=== PATIENT | male | born 1940 | race Caucasian/White ===

== ENCOUNTER 2018-04-28 11:15 | Inpatient (IN) | payer MEDICARE, OTHER ==
[~2018-04-28] VITALS: Ht 170.2 cm; Wt 81.3 kg
[~2018-04-28 11:15] MED LIST: ADULT LOW DOSE81 MG; AMOXICILLIN 50500 MG PO; ASPIR 8181 MG PO; ASPIRIN81 M2 PO; AUGMENTIN 875875 MG PO; B-122500 MCG SL; BETAPACE PO; CALCIUM 500 +1 EAC5 PO; CALCIUM 600 +1 EAC1 PO; CENTRUM SILVER1 EAC2 PO; CINNAMON500 MG PO; DESYREL100 MG; ELIQUIS5 MG PO; FISH OIL 1,001000 M2 PO; FLEXERIL PO; GLUCOSAMINE HC500 MG PO; HARD NAILS2500 MCG PO; HYDROCODONE-AP1 EAC6 PO; IRON325 PO; LIPITOR10 MG PO; LISINOPRIL PO; LOPRESSOR PO; LOPRESSOR50 PO; POTASSIUM GLUC500 GM MC; POTASSIUM GLUC500 MG PO; PRINIVIL20 MG PO; SORINE 80 MG TA80 M1 PO; TRAZODONE HCL100 MG PO; VIAGRA; ZOCOR; ZOCOR20 MG PO
[2018-04-28 11:22] VITALS: BP 143/116
[2018-04-28] MEDS ORDERED: CO Q-10100 MG PO (11:31)
[2018-04-28] MEDS ORDERED: LEXAPRO 10 MG T10 M1 PO (11:32)
[2018-04-28] MEDS ORDERED: XANAX 0.25 MG0.25 MG PO (11:32)
[2018-04-28] MEDS ORDERED: DONEPEZIL HCL 55 M1 PO (11:33)
[2018-04-28] MEDS ORDERED: BENADRYL25 MG PO (11:33)
[2018-04-28] MEDS ORDERED: XARELTO20 MG PO (11:33)
[2018-04-28 11:59] LABS: ABSOLUTE BASOPHILS 0.1 thou/uL (0.0-0.2); ABSOLUTE EOSINOPHILS 0.4 thou/uL (0.0-0.7); ABSOLUTE LYMPHOCYTES 1.6 thou/uL (0.8-5.3); ABSOLUTE MONOCYTES 0.9 thou/uL (0.0-1.2); BASOPHILS 1.3 %; EOSINOPHILS 4.7 %; HEMATOCRIT 34.6 % (42.0-52.0); HEMOGLOBIN 11.5 gm/dL (14.0-18.0); LYMPHOCYTES 19.7 %; MCH 29.4 pg (26.0-34.0); MCHC 33.1 g/dL (28.0-37.0); MCV 88.8 fL (80.0-100.0); MPV 8.3 fl. (7.2-11.1); NUCLEATED RBCS 0 /100WBC; PLATELET COUNT* 245 thou/uL (150-400); POLYS 63.3 %; RDW-CV 13.9 % (10.5-14.5); WBC 7.9 thou/uL (4.0-11.0)
[2018-04-28 12:11] LABS: APTT 33.9 Seconds (25.0-31.3); INR 1.4; PROTIME 13.5 Seconds (9.20-11.50)
[2018-04-28 12:28] LABS: ALBUMIN 3.4 g/dL (3.4-5.0); ALKALINE PHOSPHATASE 83 U/L (46-116); ANION GAP 5 mmol/L (7-16); CALCIUM 8.4 mg/dL (8.5-10.1); CHLORIDE 105 mmol/L (98-107); CK-MB MASS 1.6 ng/mL (<0.5-3.6); CO2 29 mmol/L (21-32); CREATININE 1.1 mg/dL (0.6-1.3); GLUCOSE 88 mg/dL (70-99); LIPASE 147 U/L (73-393); MAGNESIUM 2.1 mg/dL (1.8-2.4); NT-PRO BRAIN NAT PEPTIDE 347 pg/mL (<300); POTASSIUM 4.2 mmol/L (3.5-5.1); SGOT 35 U/L (15-37); SGPT 42 U/L (30-65); SODIUM 139 mmol/L (136-145); TOTAL BILIRUBIN 0.5 mg/dL (<0.1-1.0); TOTAL PROTEIN 6.3 g/dL (6.4-8.2); TROPONIN-I LEVEL <0.06 ng/mL (<0.06)
[2018-04-28 12:44] LABS: BUN 20 mg/dL (7-18)
[2018-04-28 14:54] VITALS: BP 144/84
[2018-04-28 15:10] VITALS: BP 129/55
[2018-04-28 15:15] VITALS: BP 144/66
[2018-04-28 20:00] VITALS: BP 156/70
[2018-04-29] VITALS: BP 109/59
[2018-04-29 04:00] VITALS: BP 116/75
[2018-04-29 08:35] VITALS: BP 123/77
[2018-04-29 12:00] VITALS: BP 120/87
--- NOTE | 2018-04-29 12:30 | EKG ---
[place] [address] ELECTROCARDIOGRAM REPORT Name: ANTOINE MARTINEZ Room: [address] ADM IN M.R.#: [id number] Admission: 04/28/18 Attend Phys: Sage Earl, Discharge: Date of : 38 Report #: [id number] THIS REPORT FOR: //name// [facility] ED Test Date: 2018-04-28 Test Time: 11:24:59 Pat Name: ANTOINE MARTINEZ Department: Room: [address] Gender: M Cost Manager: Makayla SANTANA : 1940 Requested By: Devon Dowd Order Number: [id number] Reading MD: Adán Holland Measurements Intervals [place] Rate: 54 P: 29 AR: 178 QRS: 11 QRSD: 90 T: 21 QT: 487 QTc: 462 Interpretive Statements Sinus rhythm Borderline low voltage, extremity leads Baseline wander in lead(s) V4 Compared to ECG 08/26/2016 13:30:34 Atrial fibrillation no longer present Electronically Signed On 04-29-2018 12:30:28 CDT by Adán Holland [email or web address] <ELECTRONICALLY SIGNED> By: Adán Holland MD, FACC 04/29/18 1230 1124 1124 Adán Holland MD, FAC /EPI
--- NOTE | 2018-04-29 12:31 | EKG ---
[place] [address] ELECTROCARDIOGRAM REPORT Name: ANTOINE MARTINEZ Room: [address] IN .R.#: [id number] Admission: 04/28/18 Attend Phys: Sage Earl, Discharge: Date of : 38 Report #: [id number] THIS REPORT FOR: //name// [facility] Test Date: 2018-04-28 Test Time: 16:42:16 Pat Name: ANTOINE MARTINEZ Department: Room: [facility] Gender: M Speech Correction Assistant: DMITRI PHAN : 1940 Requested By: Devon Dowd Order Number: [id number] MD: Adán Holland Measurements Intervals [place] Rate: 58 P: 58 [place]: 180 QRS: 21 QRSD: 95 T: 28 QT: 498 QTc: 490 Interpretive Statements Sinus rhythm Borderline low voltage, extremity leads Borderline prolonged QT interval Compared to ECG 08/26/2016 13:30:34 Atrial fibrillation no longer present Electronically Signed On 04-29-2018 12:30:55 CDT by Adán Holland [email or web address] <ELECTRONICALLY SIGNED> By: Adán Holland MD, FAC 04/29/18 1230 1642 1642 Adán Holland MD, [facility] /EPI
--- NOTE | 2018-04-29 12:32 | EKG ---
[place] [address] ELECTROCARDIOGRAM REPORT Name: ANTOINE MARTINEZ Room: [address] ADM IN M.R.#: [id number] Admission: 04/28/18 Attend Phys: Sage Earl, Discharge: Date of : 38 Report #: [id number] THIS REPORT FOR: //name// [facility] Test Date: 2018-04-29 Test Time: 07:28:59 Pat Name: ANTOINE MARTINEZ Department: Room: [address] Gender: M Material Stress Tester: EKTA BETANCOURT : 1940 Requested By: Sage Earl Order Number: [id number] Reading MD: Adán Holland Measurements Intervals [place] Rate: 74 P: [place]: QRS: -1 QRSD: 87 T: 33 QT: 407 QTc: 452 Interpretive Statements afib Ventricular premature complex Low voltage, extremity leads Baseline wander in lead(s) V2,V3 Compared to ECG 08/26/2016 13:30:34 Ventricular premature complex(es) now present Atrial fibrillation no longer present Electronically Signed On 04-29-2018 12:32:00 CDT by Adán Holland [email or web address] <ELECTRONICALLY SIGNED> By: Adán Holland MD, FACC 04/29/18 1232 0728 0728 Adán Holland MD, FAC /EPI
--- NOTE | 2018-04-29 12:32 | EKG ---
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 BETANCOURT : 1940 Requested By: Sage Earl Order Number: [id number] Reading MD: Adán Holland Measurements Intervals [place] Rate: 86 P: [place]: QRS: 4 QRSD: 84 T: 25 QT: 415 QTc: 497 Interpretive Statements Atrial fibrillation Low voltage, extremity leads Borderline prolonged QT interval Compared to ECG 08/26/2016 13:30:34 No significant changes Electronically Signed On 04-29-2018 12:32:05 CDT by Adán Holland [email or web address] <ELECTRONICALLY SIGNED> By: Adán Holland MD, [facility] 04/29/18 1232 0731 0731 Adán Holland MD, [facility] /EPI
[2018-04-29 15:58] VITALS: BP 128/77
[2018-04-29 20:00] VITALS: BP 138/79
[2018-04-30] VITALS: BP 116/63
[2018-04-30 04:00] VITALS: BP 109/62
[2018-04-30 08:00] VITALS: BP 114/77
[2018-04-30 11:35] VITALS: BP 114/71
[2018-04-30 15:43] VITALS: BP 139/92
[2018-04-30 16:13] VITALS: BP 139/92
--- NOTE | 2018-04-30 16:43 | CARDNUC ---
[place] [address] CARDIAC NUCLEAR IMAGING REPORT Name: ANTOINE MARTINEZ Room: [address] IN [facility]#: [id number] Admission: 04/28/18 Attend Phys: Sage Grider Discharge: Date of : 38 Date of Service: 04/30/18 1643 Report #: [id number] THIS REPORT FOR: //name// APPROVED REPORT Study performed: 04/29/2018 12:01:00 Indication: Chest pain, Atrial Fibrillation Patient Location: In-Patient Room #: 221 Stress Tech: Donita Talbot Stress Nurse: Verónica Palumbo RN Ht: 5 ft 7 in Wt: 179 lbs BSA: 1.93 m2 HR: 84 bpm BP: 115/80 mmHg BMI: 28.03 Rhythm: Atrial Fibrillation Medical History Medical History: HTN, Atrial Fibrillation Medications: Sotalol Allergies: Contrast Dye Cardiac Risk Factors: Age, HTN Exercise History: Sedentary Physical Disabilities: Knees Meds Held (24 hrs): Sotalol Resting Data Rest SPECT myocardial perfusion imaging was performed in supine position 45 minutes following the intravenous injection of 11.8 mCi of Tc-99m Sestamibi. Time of rest injection: 1145 Date: 04/30/2018 The images were gated to evaluate regional wall motion and calculate left ventricular ejection fraction. Administration Route: IV Administration Site: Right AC Pharmacologic Stress Pharmacologic stress test was performed by injecting Regadenoson 0.4 mg IV push over 10-15 seconds immediately followed by the intravenous injection of 35.2 mCi of Tc-99m Sestamibi. Time of stress injection: 1315 Date: 04/30/2018 Administration Route: IV Administration Site: Right AC Gated Stress SPECT was performed 45 [place] [address] CARDIAC NUCLEAR IMAGING REPORT Name: ANTOINE MARTINEZ Room: [address]#: [id number] Admission: 04/28/18 Attend Phys: Sage Grider Discharge: Date of : 38 Date of Service: 04/30/18 1643 Report #: [id number] injection. The images were gated to evaluate regional wall motion and calculate left ventricular ejection fraction. Prone imaging was performed. Stress Test Details Stress Test: Pharmacologic stress testing performed using 0.4 mg of regadenoson per 5 mL given IV over 10 seconds. Reason for pharmacologic stress test: physical limitation. HR Max Heart Rate (APMHR): 142 bpm Resting HR: 84 bpm Target HR (85% APMHR): 120 bpm Max HR Achieved: 111 bpm % of APMHR: 78 Recovery HR: 96 bpm HR response to stress: Normal HR response to stress BP Resting BP: 115/80 mmHg Recovery BP: 101/76 mmHg ECG Resting ECG: af Stress ECG: af ST Change: none Recovery ECG: af Clinical Reason for Termination: Dyspnea, Completed protocol Stress Symptoms: None Stress ECG Conclusion afib noted, no ecg changes Study Quality Study: Good Artifact: No artifact Study Data At rest, the left ventricular ejection fraction was 60%.. Post stress, the left ventricular ejection was 76%.. SSS: 0 SRS: 0 SDS: 0 TID = 90.00. [place] [address] CARDIAC NUCLEAR IMAGING REPORT Name: ANTOINE MARTINEZ Room: [address] IN [facility]#: [id number] Admission: 04/28/18 Attend Phys: Sage Grider Discharge: Date of : 38 Date of Service: 04/30/181642 Report #: [id number] Perfusion Normal perfusion on both the stress and rest images. Images were reviewed using [employer]. Wall Motion normal Nuclear Conclusion ECG Findings: negative for ischemia Clinical Findings: negative for ischemia Nuclear Findings: negative for ischemia Exercise Capacity: not assessed Negative perfusion nuclear stress test for ischemia <Conclusion> afib noted, no ecg changes <ELECTRONICALLY SIGNED> By: Adán Holland MD, [facility] 04/30/181642 42 1643 Adán Holland MD, FACC /INF
--- NOTE | 2018-04-30 18:09 | 2DMMODE ---
[place] [address] 2 D/M-MODE ECHOCARDIOGRAM Name: ANTOINE MARTINEZ Room: [address]#: [id number] Admission: 04/28/18 Attend Phys: Sage Grider Discharge: 04/30/18 Date of : 38 Date of Service: 04/30/18 1809 Report #: [id number] THIS REPORT FOR: //name// APPROVED REPORT Study performed: 04/30/2018 14:45:11 EXAM: Comprehensive 2D, Doppler, and color-flow Echocardiogram Patient Location: In-Patient Room #: [facility] Status: routine BSA: 1.93 HR: 109 bpm BP: 114/77 mmHg Rhythm: Atrial Fibrillation Other Information Study Quality: Good Indications Atrial Fibrillation Chest Pain 2D Dimensions LVEF(%): 71.89 (>50%) IVSd: 14.73 (7-11mm) LVOT Diam: 18.23 (18-24mm) LVDd: 38.54 mm PWd: 11.07 (7-11mm) Ascending Ao: 37.11 (22-36mm) LVDs: 22.94 (25-40mm) Aortic Root: 35.77 mm White's LVEF: 71.89 % Volumes Left Atrial Volume (Systole) LA ESV Index: 48.70 mL/m2 Aortic Valve AoV Peak Jerry.: 1.24 m/s AO Peak Gr.: 6.16 mmHg LVOT Max P.65 mmHg AO Mean Gr.: 3.53 mmHg LVOT Mean P.93 mmHg LVOT Max V: 0.96 m/s AO V2 VTI: 20.74 cm LVOT Mean V: 0.64 m/s ELIZABETH (VTI): 2.41 cm2 LVOT V1 VTI: 19.18 [place] [address] 2 D/M-MODE ECHOCARDIOGRAM Name: ANTOINE MARTINEZ Room: [address]#: [id number] Admission: 04/28/18 Attend Phys: Sage Grider Discharge: 04/30/18 Date of : 38 Date of Service: 04/30/18 1809 Report #: [id number] MV Decel. Time: 201.39 ms MV PHT: 58.40 ms MVA (PHT): 3.77 cm2 TDI Medial E' Jerry.: 0.09 m/s Lateral E' Jerry.: 0.13 m/s Pulmonary Valve PV Peak Jerry.: 0.84 m/s PV Peak Gr.: 2.79 mmHg Tricuspid Valve RAP Estimate: 5.00 mmHg TR Peak Gr.: 34.04 mmHg RVSP: 39.00 mmHg PA Pressure: 39.00 mmHg Left Ventricle The left ventricle is normal size. There is normal LV segmental wall motion. Mild concentric left ventricular hypertrophy. Left ventricular systolic function is normal. The left ventricular ejection fraction is within the normal range. LVEF is 60-65%. This study is not technically sufficient to allow evaluation of the LV diastolic function due to atrial fibrillation. Right Ventricle The right ventricle is normal size. The right ventricular systolic function is normal. Atria Left atrium is moderately dilated. Right atrium is moderately dilated. Aortic Valve Mild aortic valve sclerosis. No aortic regurgitation is present. There is no aortic valvular stenosis. Mitral Valve The mitral valve is normal in structure. Trace mitral regurgitation. No evidence of mitral valve stenosis. Tricuspid Valve The tricuspid valve is normal in structure. Mild tricuspid regurgitation. Mild pulmonary hypertension. Pulmonic Valve The pulmonary valve is normal in structure. [place] [address] 2 D/M-MODE ECHOCARDIOGRAM Name: ANTOINE MARTINEZ Room: [address]#: [id number] Admission: 04/28/18 Attend Phys: Sage Grider Discharge: 04/30/18 Date of : 38 Date of Service: 04/30/18 1809 Report #: [id number] valvular regurgitation. Great Vessels The aortic root is normal in size. IVC is normal in size and collapses with >50% inspiration Pericardium There is no pericardial effusion. <Conclusion> The left ventricle is normal size. Mild concentric left ventricular hypertrophy. Left ventricular systolic function is normal. The left ventricular ejection fraction is within the normal range. LVEF is 60-65%. This study is not technically sufficient to allow evaluation of the LV diastolic function due to atrial fibrillation. The right ventricle is normal size. Left atrium is moderately dilated. Right atrium is moderately dilated. No aortic regurgitation is present. There is no aortic valvular stenosis. The mitral valve is normal in structure. The tricuspid valve is normal in structure. IVC is normal in size and collapses with >50% inspiration There is no pericardial effusion. There is normal LV segmental wall motion. <ELECTRONICALLY SIGNED> By: Alex Desai MD, FACC 04/30/181808 08 08 Alex Desai MD, FACC /INF
--- NOTE | 2018-05-02 12:55 | CON ---
[address] [address] CONSULTATION Name: ANTOINE MARTINEZ Room: [address]#: [id number] Admission: 04/28/18 Attend Phys: Sage Earl, Discharge: 04/30/18 Date of : 38 Report #: [id number] THIS REPORT FOR: //name// CC: Jasen Earl DATE OF SERVICE: 04/28/2018 INPATIENT CONSULTATION REASON FOR CONSULTATION: Atrial fibrillation, questions chest pain. HISTORY OF PRESENT ILLNESS: The patient is a 77-year-old male with history of paroxysmal atrial fibrillation, who presented with sharp bilateral chest pain which occurred when he was doing some heavy lifting this past and Monday. It is positional. It hurts with a deep breath. He presented with atrial fibrillation with controlled ventricular response, but initially was in sinus rhythm with a heart rate of 58. His QT was 498 milliseconds. He denies palpitations, syncope or presyncope. His atrial fibrillation dose for sotalol was 240 mg p.o. b.i.d., which was started by Dr. Sprague and has been on this dose for several years. He is also anticoagulated with Xarelto. PAST MEDICAL HISTORY: Significant for scoliosis, back surgery, anxiety, depression, bipolar mood disorder and atrial fibrillation, paroxysmal. HOME MEDICATIONS: Atorvastatin 10 mg, trazodone, CoQ10, escitalopram, Xarelto 20 mg daily, sotalol 240 mg p.o. b.i.d. and lisinopril 20 mg daily. ALLERGIES: CONTRAST DYE. SOCIAL HISTORY: No tobacco actively. REVIEW OF SYSTEMS: GASTROINTESTINAL: No fevers or chills. GENERAL: No fevers or chills. HEMATOLOGIC: No anemia or bleeding disorders. RENAL: No history of kidney failure. CARDIOVASCULAR: Positive chest pain. No palpitations. SKIN: No rashes. NEUROLOGIC: Denies headaches, blurry vision or seizures. He does have a speech impediment. SKIN: [place] [address] CONSULTATION Name: ANTOINE MARTINEZ Room: [address]#: [id number] Admission: 04/28/18 Attend Phys: Sage Earl, Discharge: 04/30/18 Date of : 38 Report #: [id number] PHYSICAL EXAMINATION: VITAL SIGNS: Blood pressure is 140/116. GENERAL: This is a pleasant elderly male who is alert and oriented, in no apparent distress. NECK: Supple. No jugular venous distention. CARDIOVASCULAR EXAMINATION: Irregular. I cannot hear a murmur or rub. LUNGS: Clear to auscultation bilaterally. EXTREMITIES: No peripheral edema. LABORATORY DATA: Sodium is 139, potassium 4.2, chloride 105, CO2 is 29, BUN is 20, creatinine is 1.1 and glucose is 88. AST is 35, ALT is 42. Troponin I is 0.06. NT-proBNP is 347. INR is 1.4, hemoglobin is 11.5. Chest x-ray shows no acute abnormality. IMPRESSION AND PLAN: 1. Chest pain. His symptoms seem pleuritic, but he does have some cardiovascular risk factors. I will arrange for a stress test. 2. Costochondritis. I will start him on naproxen 500 mg p.o. b.i.d. 3. Paroxysmal atrial fibrillation. He apparently has been on the sotalol dose of 240 b.i.d. for some time and his QTC interval is high range of normal and has normal renal function. So, I do not see any reason that he should discontinue it. He will continue with Xarelto full dose as he has normal GFR. 4. Hypertension. Would continue with his ODILON inhibitor. <ELECTRONICALLY SIGNED> By: Adán Holland MD, FACC 05/02/18 1255 1157 0027Adán Holland MD, FACC /nt
== END 2018-04-30 16:30 | disposition home or self-care (01) | DRG 552 ==
LOC: M.ERS 11:15 → M.2W 12:31 → M.TBA-ER 12:31 → M.2W 15:05
PROVIDERS: Family Medicine; ADMIT Family Medicine
DX: S16.1XXA Strain of muscle, fascia and tendon at neck level, initial encounter (principal); F41.9 Anxiety disorder, unspecified; F31.9 Bipolar disorder, unspecified; I48.0 Paroxysmal atrial fibrillation; M94.0 Chondrocostal junction syndrome [Tietze]; I10 Essential (primary) hypertension; E78.5 Hyperlipidemia, unspecified; X58.XXXA Exposure to other specified factors, initial encounter; Y93.89 Activity, other specified; Y92.89 Other specified places as the place of occurrence of the external cause; Y99.8 Other external cause status; Z85.46 Personal history of malignant neoplasm of prostate; Z79.01 Long term (current) use of anticoagulants; Z79.899 Other long term (current) drug therapy; Z88.8 Allergy status to other drugs, medicaments and biological substances; Z91.041 Radiographic dye allergy status; Z81.8 Family history of other mental and behavioral disorders

== ENCOUNTER 2018-07-02 08:05 | Inpatient (IN) | payer MEDICARE, OTHER ==
[~2018-07-02] VITALS: Ht 172.7 cm; Wt 83.5 kg
--- NOTE | ~2018-07-02 | H ---
[address] [address] HISTORY AND PHYSICAL Name: ANTOINE MARTINEZ Room: [address] IN .R.#: [id number] Admission: 07/02/18 Attend Phys: Gage Foy MD, F Discharge: 07/04/18 Date of : 38 Report #: [id number] THIS REPORT FOR: //name// Please refer to the History and Physical performed in the physician's office. By: 0845Medical Records Staff EDUAR /THONG
[~2018-07-02 08:05] MED LIST changes: +BENADRYL25 MG PO; +CO Q-10100 MG PO; +DONEPEZIL HCL 55 M1 PO; +LEXAPRO 10 MG T10 M1 PO; +XANAX 0.25 MG0.25 MG PO; +XARELTO20 MG PO
[2018-07-02 08:45] VITALS: BP 132/73
[2018-07-02] MEDS ORDERED: XANAX 0.25 MG0.25 MG PO (09:16)
[2018-07-02] MEDS ORDERED: BESIVANCE5 ML OPHTHALMIC (09:17)
[2018-07-02] MEDS ORDERED: ARICEPT 5 MG TAB5 MG PO (09:17)
[2018-07-02] MEDS ORDERED: DUREZOL5 ML OPHTHALMIC (09:18)
[2018-07-02] MEDS ORDERED: LEXAPRO 10 MG T10 M1 PO (09:19)
[2018-07-02] MEDS ORDERED: LUMIGAN2.5 M1 OPHTHALMIC (09:20)
[2018-07-02 09:38] LABS: HEMATOCRIT 32.7 % (42.0-52.0); HEMOGLOBIN 10.2 gm/dL (14.0-18.0); MCH 24.8 pg (26.0-34.0); MCHC 31.1 g/dL (28.0-37.0); MCV 79.6 fL (80.0-100.0); RBC 4.11 mil/uL (4.50-6.00); RDW-CV 15.7 % (10.5-14.5); WBC 5.8 thou/uL (4.0-11.0)
[2018-07-02 09:42] LABS: CALCIUM 8.9 mg/dL (8.5-10.1); CREATININE 1.1 mg/dL (0.6-1.3); POTASSIUM 4.1 mmol/L (3.5-5.1)
[2018-07-02 09:44] LABS: APTT 35.7 Seconds (25.0-31.3); INR 1.5; PROTIME 15.1 Seconds (9.20-11.50)
[2018-07-02] MEDS ORDERED: CALCIUM 500 +1 EAC5 PO (09:45)
[2018-07-02 09:47] LABS: ALBUMIN 3.6 g/dL (3.4-5.0); DIRECT BILIRUBIN 0.1 mg/dL (<0.1-0.3); TOTAL BILIRUBIN 0.4 mg/dL (<0.1-1.0); TOTAL PROTEIN 6.5 g/dL (6.4-8.2)
--- NOTE | 2018-07-02 10:14 | EKG ---
[place] [address] ELECTROCARDIOGRAM REPORT Name: ANTOINE MARTINEZ Room: [place] [address] ADM IN .R.#: [id number] Admission: 07/02/18 Attend Phys: Gage Foy MD, F Discharge: Date of : 38 Report #: [id number] THIS REPORT FOR: //name// [facility] Test Date: 2018-07-02 Test Time: 09:41:46 Pat Name: ANTOINE MARTINEZ Department: Room: [place] [address] Gender: M Casing Man: : 1940 Requested By: Judie Moon Order Number: [id number] Thad MD: Gage Foy Measurements Intervals [place] Rate: 55 P: 2 [place]: 179 QRS: 7 QRSD: 95 T: 9 QT: 527 QTc: 505 Interpretive Statements Sinus rhythm Borderline low voltage, extremity leads Prolonged QT interval Compared to ECG 04/29/2018 07:31:28 Atrial fibrillation no longer present Electronically Signed On 07-02-2018 10:14:16 CDT by Gage Foy [email or web address] <ELECTRONICALLY SIGNED> By: Gage Foy MD, [facility] 07/02/18 1014 0 Gage Foy MD, [facility] /EPI
[2018-07-02 11:59] VITALS: BP 140/68
[2018-07-02 15:42] VITALS: BP 136/42
[2018-07-02 20:00] VITALS: BP 136/77
[2018-07-02 23:52] VITALS: BP 101/50
[2018-07-03 04:00] VITALS: BP 124/73
[2018-07-03 08:30] VITALS: BP 134/60
--- NOTE | 2018-07-03 11:15 | EKG ---
[place] [address] ELECTROCARDIOGRAM REPORT Name: ANTOINE MARTINEZ Room: [place] [address] ADM IN M.R.#: [id number] Admission: 07/02/18 Attend Phys: Gage Foy MD, F Discharge: Date of : 38 Report #: [id number] THIS REPORT FOR: //name// [facility] Test Date: 2018-07-03 Test Time: 02:27:02 Pat Name: ANTOINE MARTINEZ Department: Room: [place] [address] Gender: M Veneer Matcher: [facility] : 1940 Requested By: Gage Foy Order Number: [id number] Reading MD: Adán Holland Measurements Intervals [place] Rate: 69 P: [place]: QRS: 51 QRSD: 93 T: 45 QT: 444 QTc: 476 Interpretive Statements Atrial fibrillation Borderline prolonged QT interval Compared to ECG 07/02/2018 09:41:46 Sinus rhythm no longer present Electronically Signed On 07-03-2018 11:15:15 CDT by Adán Holland [email or web address] <ELECTRONICALLY SIGNED> By: Adán Holland MD, [facility] 07/03/18 1115 6 6 Adán Holland MD, [facility] /EPI
--- NOTE | 2018-07-03 11:15 | EKG ---
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: [facility] : 1940 Requested By: Judie Moon Order Number: [id number] Reading MD: Adán Holland Measurements Intervals [place] Rate: 82 P: [place]: QRS: 56 QRSD: 92 T: 51 QT: 445 QTc: 520 Interpretive Statements Atrial fibrillation Prolonged QT interval Compared to ECG 07/02/2018 09:41:46 Sinus rhythm no longer present Electronically Signed On 07-03-2018 11:15:05 CDT by Adán Holland [email or web address] <ELECTRONICALLY SIGNED> By: Adán Holland MD, [facility] 07/03/18 1115 5 5 Adán Holland MD, [facility] /EPI
[2018-07-03 12:00] VITALS: BP 143/87
[2018-07-03 16:00] VITALS: BP 136/72
[2018-07-03 20:00] VITALS: BP 169/78
[2018-07-04] VITALS: BP 135/75
[2018-07-04 04:00] VITALS: BP 143/75
[2018-07-04 07:56] VITALS: BP 149/66
[2018-07-04 08:52] VITALS: BP 143/75
[2018-07-04] MEDS ORDERED: PACERONE 200 M200 M1 PO (10:55)
--- NOTE | 2018-07-04 11:06 | EKG ---
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: : 1940 Requested By: Judie Moon Order Number: [id number] Thad MD: Gage Foy Measurements Intervals [place] Rate: 53 P: 9 [place]: 181 QRS: 12 QRSD: 99 T: 15 QT: 515 QTc: 484 Interpretive Statements Sinus bradycardia Borderline low voltage, extremity leads Borderline prolonged QT interval Compared to ECG 07/03/2018 02:27:02 Atrial fibrillation no longer present Electronically Signed On 07-04-2018 11:06:28 CDT by Gage Foy [email or web address] <ELECTRONICALLY SIGNED> By: Gage Foy MD, [facility] 07/04/18 1106 0839 0839 Gage Foy MD, [facility] /EPI
[2018-07-04 11:38] VITALS: BP 168/74
--- NOTE | 2018-07-04 15:13 | D ---
[address] [address] DISCHARGE SUMMARY Name: ANTOINE MARTINEZ Room: [address] IN M.R.#: [id number] Admission: 07/02/18 Attend Phys: Gage Foy MD, F Discharge: 07/04/18 Date of : 38 Report #: [id number] THIS REPORT FOR: //name// CC: Gage Horner DO DATE OF SERVICE: 07/04/2018 DISCHARGE DIAGNOSES: 1. Paroxysmal atrial fibrillation. 2. Previous stroke. 3. Hypertension. 4. Hyperlipidemia. 5. Speech impediment. CONSULTANTS: None. PROCEDURES: None. PRIMARY CARE PHYSICIAN: Dr. Jasen Horner in [place]. HISTORY OF PRESENT ILLNESS: The patient is a 78-year-old white male who was admitted after an episode of atrial fibrillation. The patient has a long history of hypertension and hyperlipidemia. He has a long history of paroxysmal atrial fibrillation and has been on sotalol for years. I have followed him in the Cardiology Clinic. He previously had been followed by Dr. Spaulding here at [facility]. He has had atrial fibrillation since the 1980s. He presented in 2015 with a visual field cut and was felt to have had a stroke. Anticoagulation was recommended. He did have an episode of atrial fibrillation and the dose of sotalol was increased. He was actually admitted here to [facility] in April with a sharp chest pain. He was in sinus rhythm at that time. He did undergo a cardiac workup in April that included an echocardiogram that showed left ventricular hypertrophy, ejection fraction 60% and biatrial enlargement. He also underwent a nuclear stress test in April, at which time, ejection fraction was 60% and there was no evidence of ischemia. He was noted to have atrial fibrillation at that time. The patient saw my nurse practitioner last week. The patient was noted to be back in AFib. The patient notes that recently he has been having palpitations, he has been more short of breath and fatigued. Because of his symptomatic AFib, it is recommended he be admitted, to be switched from sotalol to amiodarone and perform cardioversion. PAST MEDICAL HISTORY: Otherwise significant for back surgery, sinus surgery, tonsillectomy, wrist surgery, hypertension, hyperlipidemia and previous stroke with visual field cut. He has a speech impediment. He has a history of prostate cancer, [place] [address] DISCHARGE SUMMARY Name: ANTOINE MARTINEZ Room: [address]#: [id number] Admission: 07/02/18 Attend Phys: Gage Foy MD, F Discharge: 07/04/18 Date of : 38 Report #: [id number] MEDICATIONS: His medications on admission include Xanax, Lipitor, lisinopril, sotalol and Xarelto. ALLERGIES: HE HAD PREVIOUS RECTAL BLEEDING ON ELIQUIS AND SAVAYSA. PHYSICAL EXAMINATION: VITAL SIGNS: His blood pressure was 130/78, pulse is 60 and irregular. He is afebrile. CHEST: Clear to auscultation. CARDIAC EXAMINATION: Regular rate and rhythm. ABDOMEN: Soft. EXTREMITIES: He had no edema. SKIN: Warm and dry. LABORATORY DATA: ECG on admission actually showed a sinus bradycardia, but no QT prolongation. Workup on admission, he did have a portable chest x-ray that showed normal heart size and clear lung rodriguez. His lab work, sodium 139, creatinine 1.1 and glucose 115. Liver function studies were normal. TSH 1.7. White blood cell count 5.8, hemoglobin was 10.2. The patient had previous carotid Doppler study in 2016 that showed plaque, but no high-grade stenosis. 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 HOSPITAL COURSE: The patient was admitted to a monitored bed. He actually was noted to be back in sinus rhythm. He was taken off sotalol and started on amiodarone 600 mg twice a day. He has had no bleeding problems on his Xarelto. On the second hospital day, the patient actually went back into atrial fibrillation with a controlled response. This persisted for several hours, but then converted back to sinus rhythm. The patient did not require cardioversion. Prior to discharge, he was seen by cardiac rehabilitation. He was ambulating. He had no further complaints. The patient did note that he had an ill at home that needed to be cared for. Since he remained in sinus rhythm and was anticoagulated, it was felt safe to discharge the patient at this time. He had no significant bradycardia on the amiodarone. At the time of discharge, he was ambulating and had no further complaints. He was discharged on his home medications and had a blood pressure of 140/70 and pulse 60 and he was afebrile. His ECG showed a sinus rhythm. No significant QT prolongation. He was discharged on Xanax as needed, Lipitor 10 mg a day and lisinopril 20 mg a day. He was taken off sotalol and was discharged on amiodarone 400 mg twice a day for 2 weeks. He was then to decrease the dose to 400 mg once a day only. He was continued on Xarelto 20 mg with supper. He was discharged to return to the care of Dr. Horner for routine medical care. I plan on seeing him back in the Cardiology Clinic in 2 months. He is actually scheduled to return to see my nurse practitioner next week to assess compliance [address] [address] DISCHARGE SUMMARY Name: ANTOINE MARTINEZ Room: [address] IN [facility].#: [id number] Admission: 07/02/18 Attend Phys: Gage Foy MD, F Discharge: 07/04/18 Date of : 39 Report #: [id number] and assess that the patient remains in sinus rhythm. His prognosis is guarded due to his advanced age and history of previous stroke. <ELECTRONICALLY SIGNED> By: Gage Foy MD, FACC 07/04/18 1513 0831 1230David Pam Foy MD, FACC /nt
== END 2018-07-04 12:13 | disposition home or self-care (01) | DRG 309 ==
LOC: M.CL 08:05 → M.2W 08:39 → M.CL 10:30 → M.2W 07-04 07:30
PROVIDERS: Nurse Practitioner; ADMIT Internal Medicine Cardiovascular Disease
DX: I48.0 Paroxysmal atrial fibrillation (principal); D68.69 Other thrombophilia; I10 Essential (primary) hypertension; E78.5 Hyperlipidemia, unspecified; R47.9 Unspecified speech disturbances; Z85.46 Personal history of malignant neoplasm of prostate; Z92.3 Personal history of irradiation; Z86.73 Personal history of transient ischemic attack (TIA), and cerebral infarction without residual deficits; Z79.01 Long term (current) use of anticoagulants; Z79.899 Other long term (current) drug therapy; Z88.8 Allergy status to other drugs, medicaments and biological substances; Z23 Encounter for immunization

== ENCOUNTER → 2018-09-18 | Outpatient (CLI) | payer MEDICARE, OTHER ==
[~2018-09-18] MED LIST changes: +ARICEPT 5 MG TAB5 MG PO; +BESIVANCE5 ML OPHTHALMIC; +DUREZOL5 ML OPHTHALMIC; +LUMIGAN2.5 M1 OPHTHALMIC; +PACERONE 200 M200 M1 PO
[2018-09-18 12:24] LABS: ABSOLUTE EOSINOPHILS 0.1 thou/uL (0.0-0.7); ABSOLUTE LYMPHOCYTES 1.1 thou/uL (0.8-5.3); ABSOLUTE MONOCYTES 0.7 thou/uL (0.0-1.2); ABSOLUTE NEUTROPHILS 4.9 thou/uL (1.6-8.1); BASOPHILS 0.5 %; EOSINOPHILS 0.8 %; HEMATOCRIT 28.2 % (42.0-52.0); HEMOGLOBIN 8.9 gm/dL (14.0-18.0); LYMPHOCYTES 15.8 %; MCH 22.5 pg (26.0-34.0); MCHC 31.4 g/dL (28.0-37.0); MCV 71.7 fL (80.0-100.0); MONOCYTES 10.6 %; MPV 7.1 fl. (7.2-11.1); NUCLEATED RBCS 0 /100WBC; PLATELET COUNT* 352 thou/uL (150-400); POLYS 72.3 %; RBC 3.94 mil/uL (4.50-6.00); RDW-CV 17.7 % (10.5-14.5); WBC 6.8 thou/uL (4.0-11.0)
[2018-09-18 12:57] LABS: ANISOCYTOSIS 1+; CLUMPED PLTS OCCASIONAL; HYPOCHROMASIA 3+; PLATELET ESTIMATE ADEQUATE
[2018-09-18 12:58] LABS: MICROCYTES 2+; POLYCHROMASIA 1+
[2018-09-18 13:04] LABS: ALBUMIN 3.5 g/dL (3.4-5.0); CALCIUM 8.5 mg/dL (8.5-10.1); CREATININE 1.4 mg/dL (0.6-1.3); POTASSIUM 4.9 mmol/L (3.5-5.1); TOTAL BILIRUBIN 0.4 mg/dL (<0.1-1.0); TOTAL PROTEIN 6.3 g/dL (6.4-8.2)
== END ==
LOC: M.LAB 11:52
PROVIDERS: Nurse Practitioner
DX: I10 Essential (primary) hypertension (principal); R05 Cough; R06.02 Shortness of breath

== ENCOUNTER → 2018-10-03 | Outpatient (CLI) | payer MEDICARE, OTHER | LOC: M.MRI 15:19 | DX: G31.9 Degenerative disease of nervous system, unspecified (principal); R41.3 Other amnesia; I48.0 Paroxysmal atrial fibrillation; R26.9 Unspecified abnormalities of gait and mobility; Z86.73 Personal history of transient ischemic attack (TIA), and cerebral infarction without residual deficits ==

== ENCOUNTER → 2018-11-06 | Day surgery (SDC) | payer MEDICARE, OTHER ==
--- NOTE | ~2018-11-06 | PROC ---
[address] [place] [address] PROCEDURE REPORT Name: ANTOINE MARTINEZ Room: [facility].#: [id number] Admission: 11/06/18 Attend Phys: Georgi Marley DO Discharge: Date of : 39 Report #: [id number] THIS REPORT FOR: //name// For GI report, please see the Provation report in Perceptive 7 content. By: 0834Medical Records Staff [facility] /THONG
[2018-11-06 09:31] LABS: HEMATOCRIT 25.9 % (42.0-52.0); HEMOGLOBIN 7.7 gm/dL (14.0-18.0); MCH 19.9 pg (26.0-34.0); MCHC 29.6 g/dL (28.0-37.0); MCV 67.3 fL (80.0-100.0); MPV 7.5 fl. (7.2-11.1); RBC 3.84 mil/uL (4.50-6.00); RDW-CV 18.2 % (10.5-14.5); WBC 6.2 thou/uL (4.0-11.0)
[2018-11-06 09:42] LABS: ALBUMIN 3.6 g/dL (3.4-5.0); CALCIUM 8.8 mg/dL (8.5-10.1); CREATININE 1.4 mg/dL (0.6-1.3); TOTAL BILIRUBIN 0.4 mg/dL (<0.1-1.0); TOTAL PROTEIN 6.7 g/dL (6.4-8.2)
== END | disposition home or self-care (01) ==
LOC: M.SUR 08:56
PROVIDERS: Internal Medicine Gastroenterology
DX: K62.7 Radiation proctitis (principal); K55.20 Angiodysplasia of colon without hemorrhage; K57.30 Diverticulosis of large intestine without perforation or abscess without bleeding; K64.4 Residual hemorrhoidal skin tags; I48.0 Paroxysmal atrial fibrillation; I10 Essential (primary) hypertension; E78.5 Hyperlipidemia, unspecified; F03.90 Unspecified dementia, unspecified severity, without behavioral disturbance, psychotic disturbance, mood disturbance, and anxiety; H40.9 Unspecified glaucoma; M19.90 Unspecified osteoarthritis, unspecified site; Z86.73 Personal history of transient ischemic attack (TIA), and cerebral infarction without residual deficits; Z79.01 Long term (current) use of anticoagulants; Z85.46 Personal history of malignant neoplasm of prostate; Z79.899 Other long term (current) drug therapy; Z98.890 Other specified postprocedural states; Z91.041 Radiographic dye allergy status

== ENCOUNTER → 2018-11-22 | Outpatient (CLI) | payer MEDICARE, OTHER | LOC: M.RAD 10:42 | DX: I48.0 Paroxysmal atrial fibrillation (principal); M51.34 Other intervertebral disc degeneration, thoracic region; Z98.890 Other specified postprocedural states; Z88.8 Allergy status to other drugs, medicaments and biological substances ==

== ENCOUNTER 2018-12-22 18:22 | Emergency (ER) | payer MEDICARE, OTHER ==
[~2018-12-22] VITALS: Ht 162.6 cm; Wt 84.6 kg
[2018-12-22 19:18] LABS: INFLUENZA B ANTIGEN None Detected (None Detect)
[2018-12-22] MEDS ORDERED: OSELB75 PO (19:45)
[2018-12-22 20:06] VITALS: BP 140/65
--- NOTE | 2018-12-24 11:05 | EKG ---
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1940 Requested By: Haja Alan Order Number: [id number] Thad MD: Alex Desai Measurements Intervals [place] Rate: 58 P: 32 IL: 176 QRS: 31 QRSD: 98 T: 43 QT: 461 QTc: 453 Interpretive Statements Sinus rhythm Baseline wander in lead(s) II,III,aVF Compared to ECG 07/04/2018 08:39:01 Sinus bradycardia no longer present Electronically Signed On 12-24-2018 11:05:35 CDT by Alex Desai [email or web address] <ELECTRONICALLY SIGNED> By: Alex Desai MD, [facility] 12/24/18 1105 30 30 Alex Desai MD, FACC /EPI
== END 2018-12-22 20:07 | disposition home or self-care (01) ==
LOC: M.ERS 18:22
PROVIDERS: Nurse Practitioner Family
DX: J10.1 Influenza due to other identified influenza virus with other respiratory manifestations (principal); M41.9 Scoliosis, unspecified; I48.91 Unspecified atrial fibrillation; F41.9 Anxiety disorder, unspecified; F31.9 Bipolar disorder, unspecified; Z98.890 Other specified postprocedural states; Z85.46 Personal history of malignant neoplasm of prostate; Z91.041 Radiographic dye allergy status; Z88.8 Allergy status to other drugs, medicaments and biological substances

== ENCOUNTER 2020-07-31 11:32 | Inpatient (IN) | payer MEDICARE, OTHER ==
[~2020-07-31] VITALS: Ht 180.3 cm; Wt 74.4 kg
[~2020-07-31 11:32] MED LIST changes: +OSELB75 PO
[2020-07-31 11:41] VITALS: BP 122/80
[2020-07-31 12:07] LABS: HEMATOCRIT 54.4 % (42.0-52.0); HEMOGLOBIN 18.4 gm/dL (14.0-18.0); MCH 31.9 pg (26.0-34.0); MCHC 33.8 g/dL (28.0-37.0); MCV 94.3 fL (80.0-100.0); MPV 8.7 fl. (7.2-11.1); NUCLEATED RBCS 0 /100WBC; PLATELET COUNT* 179 thou/uL (150-400); RBC 5.77 mil/uL (4.50-6.00); RDW-CV 14.4 % (10.5-14.5); WBC 10.1 thou/uL (4.0-11.0)
[2020-07-31 12:21] LABS: CALCIUM 8.8 mg/dL (8.5-10.1); CREATININE 2.4 mg/dL (0.6-1.3); POTASSIUM 3.6 mmol/L (3.5-5.1)
[2020-07-31 12:33] LABS: ALBUMIN 2.9 g/dL (3.4-5.0); TOTAL BILIRUBIN 0.8 mg/dL (<0.1-1.0); TOTAL PROTEIN 6.7 g/dL (6.4-8.2)
--- NOTE | 2020-07-31 13:08 | EKG ---
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: : 1940 Requested By: Tarun Briseno Order Number: [id number] MD: Gage Foy Measurements Intervals [place] Rate: 128 P: [place]: QRS: 23 QRSD: 94 T: 58 QT: 328 QTc: 479 Interpretive Statements Atrial fibrillation Borderline low voltage, extremity leads Nonspecific T abnormalities, lateral leads Borderline prolonged QT interval Compared to ECG 12/22/2018 18:31:54 T-wave abnormality now present Sinus rhythm no longer present Electronically Signed On 07-31-2020 13:08:12 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
[2020-07-31 13:16] LABS: ABSOLUTE LYMPHOCYTES 0.6 thou/uL (0.8-5.3); ABSOLUTE NEUTROPHILS 9.5 thou/uL (1.6-8.1); ATYPICAL LYMPHS 5 %; PLATELET ESTIMATE ADEQUATE
[2020-07-31 15:36] VITALS: BP 119/75
[2020-07-31 16:10] VITALS: BP 128/81
--- NOTE | 2020-07-31 16:33 | CON ---
[address] [address] CONSULTATION Name: ANTOINE MARTINEZ Room: [address] IN M.R.#: [id number] Admission: 07/31/20 Attend Phys: Joe Dunbar Discharge: Date of : 38 Report #: [id number] THIS REPORT FOR: //name// cc: Jasen Horner James V. DO ~ DATE OF SERVICE: 07/31/2020 CARDIOLOGY CONSULTATION HISTORY OF PRESENT ILLNESS: The patient is an 80-year-old male who I was asked to see in the Emergency Room after he was noted to be in atrial fibrillation. The history is obtained from some old records. The patient has a history of dementia and is confused at this time. He has a history of paroxysmal atrial fibrillation. Apparently, he has had a previous stroke. He was placed on Xarelto, but developed GI bleeding. He has been on amiodarone. He was taken off of Xarelto because of GI bleeding. He apparently lives by himself and is not very active. The patient has a history of falling. He was last seen by my nurse practitioner in May. No changes were made in his medications. He was on amiodarone at that time. Apparently, the patient has been coughing recently. When family members went to visit him and he was found lying on the floor. He was brought to [facility] by ambulance. He was found to be in atrial fibrillation. Cardiology consultation requested. PAST MEDICAL HISTORY: Significant for back surgery, tonsillectomy, wrist surgery. He has had a previous stroke. He has a history of dementia, history of GI bleeding. MEDICATIONS: His previous medications include amiodarone, Lipitor, lisinopril. ALLERGIES: HE HAS A PREVIOUS INTOLERANCE TO SAVAYSA. FAMILY HISTORY: Positive for heart disease in his mother. SOCIAL HISTORY: He is , lives by himself in [place]. Nonsmoker. No alcohol abuse. REVIEW OF SYSTEMS: No history of asthma, liver disease, kidney disease, cancer, chronic skin condition, psychiatric illness. PHYSICAL EXAMINATION: GENERAL: Revealed an elderly, frail-appearing male, lying in bed. He was coughing frequently. VITAL SIGNS: Blood pressure 120/80, pulse is 90 and irregular. [place] [address] CONSULTATION Name: ANTOINE MARTINEZ Room: [address]#: [id number] Admission: 07/31/20 Attend Phys: Joe Dunbar Discharge: Date of : 39 Report #: [id number] HEENT: He was anicteric. Conjunctivae are pink. Mucous membranes moist. NECK: Veins do not appear distended. CHEST: Revealed coarse breath sounds bilaterally. CARDIOVASCULAR: Irregular, tachycardia. ABDOMEN: Soft. EXTREMITIES: Had no edema. SKIN: Cool and dry. NEUROLOGIC: He was not oriented to place this time. RADIOLOGICAL DATA: His ECG on admission showed atrial fibrillation with an increased ventricular response rate, nonspecific T-wave changes. His echocardiogram in 2018 here at [facility] showed an ejection fraction of 65%, left ventricular hypertrophy, biatrial enlargement. His chest x-ray this morning normal heart size, basilar infiltrate noted. CT scan of the head was performed after his fall that showed atrophy, microvascular changes. LABORATORY WORK: Sodium 143, BUN 63, creatinine is 2.4, albumin is only 2.9. Troponin is 0.3, 0.24 on repeat. BNP 1011. His white blood cell count 10.1, hemoglobin 18.4. IMPRESSION AND RECOMMENDATIONS: 1. Atrial fibrillation. The patient has been on amiodarone. He is not a very good candidate for anticoagulation because of history of falls. He has been on Xarelto in the past. 2. Previous stroke. 3. Dementia. 4. Positive for COVID-19 with pneumonia. <ELECTRONICALLY SIGNED> By: Gage Foy MD, FACC 07/31/20 1633 1513 1535Damaurizio Foy MD, FACC /nt
[2020-07-31 19:30] VITALS: BP 120/78
[2020-07-31 20:20] VITALS: BP 120/78
[2020-08-01] VITALS (7 sets, daily range): BP systolic 108–135; BP diastolic 70–88
[2020-08-01 01:02] LABS: ABSOLUTE LYMPHOCYTES 0.1 thou/uL (0.8-5.3); ABSOLUTE MONOCYTES 0.2 thou/uL (0.0-1.2); ABSOLUTE NEUTROPHILS 6.3 thou/uL (1.6-8.1); BASOPHILS 0.3 %; HEMATOCRIT 48.2 % (42.0-52.0); LYMPHOCYTES 1.7 %; MCH 31.4 pg (26.0-34.0); MCHC 33.2 g/dL (28.0-37.0); MCV 94.6 fL (80.0-100.0); MONOCYTES 2.6 %; MPV 8.7 fl. (7.2-11.1); NUCLEATED RBCS 0 /100WBC; PLATELET COUNT* 157 thou/uL (150-400); POLYS 95.4 %; RDW-CV 14.2 % (10.5-14.5); WBC 6.6 thou/uL (4.0-11.0)
[2020-08-01 01:04] LABS: CALCIUM 8.4 mg/dL (8.5-10.1); CREATININE 1.4 mg/dL (0.6-1.3); POTASSIUM 3.3 mmol/L (3.5-5.1)
[2020-08-01 01:07] LABS: MAGNESIUM 2.3 mg/dL (1.8-2.4)
[2020-08-01 01:13] LABS: ALBUMIN 2.4 g/dL (3.4-5.0); CALCIUM 8.3 mg/dL (8.5-10.1); CREATININE 1.4 mg/dL (0.6-1.3); POTASSIUM 3.3 mmol/L (3.5-5.1); TOTAL BILIRUBIN 0.6 mg/dL (<0.1-1.0); TOTAL PROTEIN 5.8 g/dL (6.4-8.2)
[2020-08-02] VITALS (7 sets, daily range): BP systolic 124–157; BP diastolic 67–92
[2020-08-03 04:00] VITALS: BP 142/76
[2020-08-03 06:02] LABS: HEMATOCRIT 51.9 % (42.0-52.0); HEMOGLOBIN 17.3 gm/dL (14.0-18.0); MCH 31.3 pg (26.0-34.0); MCHC 33.3 g/dL (28.0-37.0); MCV 93.9 fL (80.0-100.0); MPV 9.2 fl. (7.2-11.1); NUCLEATED RBCS 0 /100WBC; PLATELET COUNT* 154 thou/uL (150-400); RBC 5.53 mil/uL (4.50-6.00); RDW-CV 14.1 % (10.5-14.5); WBC 16.1 thou/uL (4.0-11.0)
[2020-08-03 06:11] LABS: ALBUMIN 2.3 g/dL (3.4-5.0); CALCIUM 9.2 mg/dL (8.5-10.1); CREATININE 0.9 mg/dL (0.6-1.3); MAGNESIUM 2.2 mg/dL (1.8-2.4); PHOSPHORUS* 2.3 mg/dL (2.5-4.9); POTASSIUM 3.3 mmol/L (3.5-5.1); TOTAL BILIRUBIN 0.9 mg/dL (<0.1-1.0)
[2020-08-03 06:33] LABS: ABSOLUTE LYMPHOCYTES 0.3 thou/uL (0.8-5.3); ABSOLUTE MONOCYTES 0.2 thou/uL (0.0-1.2); ABSOLUTE NEUTROPHILS 15.6 thou/uL (1.6-8.1); PLATELET ESTIMATE ADEQUATE
[2020-08-03 06:34] LABS: ANISOCYTOSIS 1+; POIKILOCYTOSIS 1+
[2020-08-03 08:00] VITALS: BP 159/91
[2020-08-03 12:00] VITALS: BP 121/73
[2020-08-03 18:27] VITALS: BP 146/83
[2020-08-03 19:41] LABS: APTT 25.1 Seconds (25.0-31.3); INR 1.1; PROTIME 11.7 Seconds (9.20-11.50)
[2020-08-03 20:48] VITALS: BP 141/84; BP 148/94
[2020-08-03 20:52] VITALS: BP 145/86
[2020-08-04 04:00] VITALS: BP 151/87
[2020-08-04 06:54] LABS: ABSOLUTE LYMPHOCYTES 0.1 thou/uL (0.8-5.3); MPV 9.3 fl. (7.2-11.1); NUCLEATED RBCS 0 /100WBC; POLYS 96.8 %
[2020-08-04 06:56] LABS: ABSOLUTE MONOCYTES 0.3 thou/uL (0.0-1.2); ABSOLUTE NEUTROPHILS 12.1 thou/uL (1.6-8.1); BASOPHILS 0.3 %; HEMATOCRIT 53.9 % (42.0-52.0); HEMOGLOBIN 17.8 gm/dL (14.0-18.0); LYMPHOCYTES 0.9 %; MCV 94.1 fL (80.0-100.0); PLATELET COUNT* 141 thou/uL (150-400); RBC 5.73 mil/uL (4.50-6.00); RDW-CV 14.3 % (10.5-14.5); WBC 12.5 thou/uL (4.0-11.0)
[2020-08-04 07:06] LABS: APTT 21.7 Seconds (25.0-31.3); INR 1.2; PROTIME 12.5 Seconds (9.20-11.50)
[2020-08-04 07:11] LABS: ALBUMIN 2.4 g/dL (3.4-5.0); CALCIUM 9.6 mg/dL (8.5-10.1); CREATININE 1.1 mg/dL (0.6-1.3); POTASSIUM 4.5 mmol/L (3.5-5.1); TOTAL BILIRUBIN 0.9 mg/dL (<0.1-1.0); TOTAL PROTEIN 6.4 g/dL (6.4-8.2)
[2020-08-04 08:00] VITALS: BP 132/99
--- NOTE | 2020-08-04 15:11 | 2DMMODE ---
[place] [address] 2 D/M-MODE ECHOCARDIOGRAM Name: ANTOINE MARTINEZ Room: [address] IN [facility]#: [id number] Admission: 07/31/20 Attend Phys: Khalif Cunningham Discharge: Date of : 38 Date of Service: 08/04/20 1511 Report #: [id number] THIS REPORT FOR: cc: Jasen Horner James V. DO Biggs, F. Douglas MD [facility] ~ APPROVED REPORT Study performed: 08/04/2020 11:13:35 EXAM: Comprehensive 2D, Doppler, and color-flow Echocardiogram Patient Location: In-Patient Room #: [facility] Status: routine BSA: 1.97 HR: 115 bpm BP: 134/99 mmHg Rhythm: Atrial Fibrillation Other Information Study Quality: Good Indications Dyspnea 2D Dimensions IVSd: 10.57 (7-11mm) LVOT Diam: 22.20 (18-24mm) LVDd: 41.52 mm PWd: 10.56 (7-11mm) Ascending Ao: 33.90 (22-36mm) LVDs: 23.90 (25-40mm) Aortic Root: 32.40 mm Volumes Left Atrial Volume (Systole) LA ESV Index: 45.10 mL/m2 Aortic Valve AoV Peak Jerry.: 1.25 m/s AO Peak Gr.: 6.22 mmHg LVOT Max P.35 mmHg AO Mean Gr.: 3.70 mmHg LVOT Mean P.21 mmHg LVOT Max V: 0.77 m/s AO V2 VTI: 21.64 cm LVOT Mean V: 0.51 m/s ELIZABETH (VTI): 2.19 cm2 LVOT V1 VTI: 12.26 [place] [address] 2 D/M-MODE ECHOCARDIOGRAM Name: ANTOINE MARTINEZ Room: [address] IN ..#: [id number] Admission: 07/31/20 Attend Phys: Khalif Cunningham Discharge: Date of : 38 Date of Service: 08/04/20 1511 Report #: [id number] TDI Medial E' Jerry.: 0.13 m/s Pulmonary Valve PV Peak Jerry.: 0.83 m/s PV Peak Gr.: 2.76 mmHg Tricuspid Valve RAP Estimate: 5.00 mmHg TR Peak Gr.: 29.71 mmHg RVSP: 34.00 mmHg PA Pressure: 34.00 mmHg Left Ventricle The left ventricle is normal size. There is normal LV segmental wall motion. There is normal left ventricular wall thickness. Left ventricular systolic function is normal. The left ventricular ejection fraction is within the normal range. LVEF is 55-60%. This study is not technically sufficient to allow evaluation of the LV diastolic function due to atrial fibrillation. Right Ventricle Right ventricle is dilated. The right ventricular systolic function is normal. Atria Left atrium is moderately dilated. The right atrium size is normal. Aortic Valve The aortic valve is normal in structure. No aortic regurgitation is present. There is no aortic valvular stenosis. Mitral Valve The mitral valve is normal in structure. Mild mitral regurgitation. No evidence of mitral valve stenosis. Tricuspid Valve The tricuspid valve is normal in structure. Mild tricuspid regurgitation. Mild pulmonary hypertension. Pulmonic Valve The pulmonary valve is normal in structure. There is no pulmonic valvular regurgitation. Great Vessels The aortic root is normal in size. IVC is normal in size and collapses >50% [place] [address] 2 D/M-MODE ECHOCARDIOGRAM Name: ANTOINE MARTINEZ Room: [address] IN [facility]#: [id number] Admission: 07/31/20 Attend Phys: Khalif Cunningham Discharge: Date of : 38 Date of Service: 08/04/20 1511 Report #: [id number] Pericardium There is no pericardial effusion. <Conclusion> LVEF is 55-60%. This study is not technically sufficient to allow evaluation of the LV diastolic function due to atrial fibrillation. There is normal left ventricular wall thickness. The left ventricle is normal size. There is normal LV segmental wall motion. Right ventricle is dilated. The right ventricular systolic function is normal. Left atrium is moderately dilated. No aortic regurgitation is present. Mild mitral regurgitation. Mild tricuspid regurgitation. Mild pulmonary hypertension. <ELECTRONICALLY SIGNED> By: Frenandez Sprague MD, FACC 08/04/201510 10 10 Fernandez Sprague MD, FACC /INF
[2020-08-04 18:35] VITALS: BP 125/75
[2020-08-04 20:00] VITALS: BP 166/103
[2020-08-05] VITALS (7 sets, daily range): BP systolic 119–160; BP diastolic 68–106
[2020-08-05 05:02] LABS: HEMOGLOBIN 17.1 gm/dL (14.0-18.0); MCH 31.6 pg (26.0-34.0); MCHC 33.6 g/dL (28.0-37.0); MCV 94.1 fL (80.0-100.0); MPV 9.6 fl. (7.2-11.1); RBC 5.42 mil/uL (4.50-6.00); WBC 13.6 thou/uL (4.0-11.0)
[2020-08-05 05:48] LABS: ALBUMIN 2.3 g/dL (3.4-5.0); CALCIUM 9.6 mg/dL (8.5-10.1); CREATININE 1.2 mg/dL (0.6-1.3); MAGNESIUM 2.2 mg/dL (1.8-2.4); TOTAL BILIRUBIN 0.9 mg/dL (<0.1-1.0); TOTAL PROTEIN 5.9 g/dL (6.4-8.2)
[2020-08-06 00:13] VITALS: BP 151/95
[2020-08-06 04:00] VITALS: BP 155/90
[2020-08-06 05:11] LABS: HEMATOCRIT 54.1 % (42.0-52.0); HEMOGLOBIN 17.9 gm/dL (14.0-18.0); MCH 30.9 pg (26.0-34.0); MCHC 33.1 g/dL (28.0-37.0); MCV 93.3 fL (80.0-100.0); MPV 9.6 fl. (7.2-11.1); RBC 5.8 mil/uL (4.50-6.00); RDW-CV 14.4 % (10.5-14.5)
[2020-08-06 05:51] LABS: ALBUMIN 2.4 g/dL (3.4-5.0); CALCIUM 9.7 mg/dL (8.5-10.1); CREATININE 1.1 mg/dL (0.6-1.3); MAGNESIUM 2.3 mg/dL (1.8-2.4); POTASSIUM 3.9 mmol/L (3.5-5.1); TOTAL BILIRUBIN 1.2 mg/dL (<0.1-1.0)
[2020-08-06 11:22] VITALS: BP 143/78
[2020-08-06 16:00] VITALS: BP 88/50
[2020-08-06 20:10] VITALS: BP 112/71
[2020-08-07] VITALS (7 sets, daily range): BP systolic 137–163; BP diastolic 91–107
[2020-08-07 04:43] LABS: HEMATOCRIT 57.2 % (42.0-52.0); HEMOGLOBIN 18.8 gm/dL (14.0-18.0); MCH 31.1 pg (26.0-34.0); MCHC 32.9 g/dL (28.0-37.0); MCV 94.4 fL (80.0-100.0); MPV 9.6 fl. (7.2-11.1); RBC 6.05 mil/uL (4.50-6.00); RDW-CV 14.2 % (10.5-14.5); WBC 11.8 thou/uL (4.0-11.0)
[2020-08-07 05:17] LABS: ALBUMIN 2.4 g/dL (3.4-5.0); CALCIUM 8.8 mg/dL (8.5-10.1); CREATININE 0.9 mg/dL (0.6-1.3); MAGNESIUM 2.2 mg/dL (1.8-2.4); POTASSIUM 3.9 mmol/L (3.5-5.1); TOTAL BILIRUBIN 1.3 mg/dL (<0.1-1.0); TOTAL PROTEIN 6.1 g/dL (6.4-8.2)
[2020-08-08 04:00] VITALS: BP 185/101
[2020-08-08 08:00] VITALS: BP 165/89
[2020-08-08 11:21] VITALS: BP 171/116
[2020-08-08 13:20] LABS: CALCIUM 9.3 mg/dL (8.5-10.1); CREATININE 1.1 mg/dL (0.6-1.3); MAGNESIUM 2.6 mg/dL (1.8-2.4); POTASSIUM 4.3 mmol/L (3.5-5.1)
[2020-08-08 16:00] VITALS: BP 162/92
[2020-08-08 19:50] VITALS: BP 133/79
[2020-08-09] VITALS: BP 148/103
[2020-08-09 03:57] VITALS: BP 131/106
[2020-08-09 11:49] VITALS: BP 131/106
--- NOTE | 2020-08-10 07:46 | CON ---
[address] [address] CONSULTATION Name: ANTOINE MARTINEZ Room: [address] IN M.R.#: [id number] Admission: 07/31/20 Attend Phys: Joe Dunbar Discharge: 08/09/20 Date of : 38 Report #: [id number] THIS REPORT FOR: //name// cc: Jasen Horner James V. DO ~ DATE OF SERVICE: 08/03/2020 REQUESTING PHYSICIAN: Consult has been requested by Dr. Cunningham. INDICATION FOR CONSULTATION: COVID-19. HISTORY OF PRESENT ILLNESS: An 80-year-old gentleman with past medical history includes a history of dementia. The patient has also had atrial fibrillation in the past, had to be taken off anticoagulation for a gastrointestinal bleed. The patient has now had recent contact with COVID-19. His washer hand recently tested positive for COVID-19. The patient himself is now admitted here with COVID-19. He also is noted to be in atrial fibrillation. Currently, he is not on anticoagulation. Since arrival, there is a progressive worsening in his condition. The patient initially was requiring at times 2 liters and sometimes no oxygen to maintain O2 saturation in the low 90s. This has worsened to 6 liters this morning and since then further to 10 liters. There is also a significant worsening on his chest x-ray. The patient's blood pressure remains mildly elevated, heart rate is within the normal range. The patient does remain confused. He has been taking his oxygen off. His EKG leads have to be placed on the back; otherwise, he takes them off also. At the time of my evaluation, the patient was not wearing any clothes at all. He had removed his hospital gown. The patient is unable to provide further history or review of systems. PAST MEDICAL HISTORY: Dementia, atrial fibrillation, GI bleed, previously anticoagulation was discontinued for GI bleeding, has had a stroke, back surgery, tonsillectomy, wrist surgery. At one point, the patient has been treated with amiodarone in the past, benign prostatic hypertrophy, scoliosis, back surgery with hardware placement in the back. Possible history of prostate cancer, tonsillectomy, depression, anxiety, bipolar disorder. The patient's echocardiogram from 2018 shows a left ventricular ejection fraction of 60-65% with a pulmonary artery systolic of 39. SOCIAL HISTORY: There is no known history of smoking, ethanol abuse or drug abuse. FAMILY HISTORY: His washer hand has COVID-19. CURRENT MEDICATIONS: [place] [address] CONSULTATION Name: ANTOINE MARTINEZ Room: [address] IN ..#: [id number] Admission: 07/31/20 Attend Phys: Joe Dunbar Discharge: 08/09/20 Date of : 39 Report #: [id number] HOME MEDICATIONS: List in [facility] reviewed. Also, see above. ALLERGIES: THE PATIENT IS REPORTED TO HAVE HAD ANAPHYLAXIS WITH IODINE DYE. ALSO HAS A REPORTED ALLERGY TO GADOLINIUM CONTAINING CONTRAST MEDIA. PHYSICAL EXAMINATION: GENERAL: He was fully awake, confused. He had no clothes on. He had removed his hospital gown. The EKG leads were placed on his back as he had been pulling them off. The patient had also been pulling off his oxygen. VITAL SIGNS: Pulse 92, blood pressure 146/83, respiratory rate 15-16, afebrile with a temperature of 36.7. He is on 10 liters oxygen via nasal cannula, O2 saturation is around 93%-94%. HEENT: Head is normocephalic and atraumatic. NECK: Does not show raised JVP, asymmetry, mass or lymph nodes. CHEST: Symmetrical expansion on inspection and palpation. On auscultation, breath sounds are bilaterally equal but decreased. I do not hear any added sounds. HEART: Irregular. There is no murmur. ABDOMEN: Soft and nontender. EXTREMITIES: Lower extremities show no edema, no calf tenderness. SKIN: Dry and intact. NEUROLOGICAL: He is confused. Moves all extremities bilaterally equally and spontaneously with no focal deficit identified. LABORATORY DATA: I ordered a chest x-ray today and reviewed it. There is a significant worsening in infiltrates and likely increase in pulmonary vascular congestion as well compared with the x-ray performed on the . CT head as well as C-spine performed on the are in [facility] and these are reviewed. ASSESSMENT AND PLAN: 1. Acute hypoxemic respiratory failure secondary to COVID-19, we will move him to the [facility] area. We will increase his steroids. He may benefit from BiPAP, but he is too confused to be able to use BiPAP at this time. 2. COVID-19. Recommend starting remdesivir. In addition, we will also go ahead and give him one unit of convalescent plasma tonight. We will reassess tomorrow and will consider giving him one more unit tomorrow morning. 3. Pulmonary infiltrates. I also broadened his antibiotics to doxycycline and remdesivir. 4. Fluid overload with hypernatremia. I feel that he is total body fluid overloaded. Note that his BUN is still elevated; however, it has come down. His sodium is elevated. I will run him on the rotary drier feeder side as long as his blood pressure is maintained. We will give him D5W as well to correct his sodium; however, at this time, avoiding fluid overload in order to avoid worsening his respiratory failure, takes priority. I will cautiously to diurese him as well. [address] [place] [address] CONSULTATION Name: ANTOINE MARTINEZ Room: [address]#: [id number] Admission: 07/31/20 Attend Phys: Joe Dunbar Discharge: 08/09/20 Date of : 39 Report #: [id number] 5. Atrial fibrillation, currently rate controlled. 6. Evaluation for thromboembolic phenomenon/anticoagulation. He is confused and is high risk for falls; therefore, I did not increase his anticoagulation to full dose now. We will do an echo. We will also check D-dimer tomorrow. We will reassess tomorrow. 7. Gastrointestinal prophylaxis, Pepcid. 8. Clostridium difficile prophylaxis, Florastor. The patient is critically ill at this time. Total time spent providing critical care to this patient today is 45 minutes. <ELECTRONICALLY SIGNED> By: Sergio Baer MD 08/10/20 0746 [id number] Baer MD /nt
== END 2020-08-09 16:27 | disposition hospice, home (50) | DRG 177 ==
LOC: M.ERS 11:32 → M.TBA-ER 13:03 → M.ORTHSURG 13:03
PROVIDERS: Emergency Medicine Emergency Medical Services; Internal Medicine; Internal Medicine Critical Care Medicine; ADMIT Internal Medicine; ATTEND Internal Medicine
PROC: 5A0935A Assistance with Respiratory Ventilation, Less than 24 Consecutive Hours, High Flow/Velocity Cannula (ICD-10-PCS; principal; 2020-08-02)
PROC: XW033E5 Introduction of Remdesivir Anti-infective into Peripheral Vein, Percutaneous Approach, New Technology Group 5 (ICD-10-PCS; 2020-08-03)
PROC: XW13325 Transfusion of Convalescent Plasma (Nonautologous) into Peripheral Vein, Percutaneous Approach, New Technology Group 5 (ICD-10-PCS; 2020-08-03)
PROC: 5A0935A Assistance with Respiratory Ventilation, Less than 24 Consecutive Hours, High Flow/Velocity Cannula (ICD-10-PCS; 2020-08-04)
PROC: 5A0935A Assistance with Respiratory Ventilation, Less than 24 Consecutive Hours, High Flow/Velocity Cannula (ICD-10-PCS; 2020-08-06)
PROC: 5A0935A Assistance with Respiratory Ventilation, Less than 24 Consecutive Hours, High Flow/Velocity Cannula (ICD-10-PCS; 2020-08-07)
PROC: 5A0935A Assistance with Respiratory Ventilation, Less than 24 Consecutive Hours, High Flow/Velocity Cannula (ICD-10-PCS; 2020-08-09)
DX: U07.1 COVID-19 (principal); J12.89 Other viral pneumonia; J96.01 Acute respiratory failure with hypoxia; G92 Toxic encephalopathy; I48.20 Chronic atrial fibrillation, unspecified; E87.0 Hyperosmolality and hypernatremia; R33.9 Retention of urine, unspecified; M41.9 Scoliosis, unspecified; F31.9 Bipolar disorder, unspecified; E86.0 Dehydration; R77.8 Other specified abnormalities of plasma proteins; N40.0 Benign prostatic hyperplasia without lower urinary tract symptoms; E78.5 Hyperlipidemia, unspecified; E87.6 Hypokalemia; F03.90 Unspecified dementia, unspecified severity, without behavioral disturbance, psychotic disturbance, mood disturbance, and anxiety; Z66 Do not resuscitate; Z79.899 Other long term (current) drug therapy; Z91.041 Radiographic dye allergy status; Z86.73 Personal history of transient ischemic attack (TIA), and cerebral infarction without residual deficits; Z85.46 Personal history of malignant neoplasm of prostate